=== PATIENT | male | born 1965 | race Caucasian/White ===

== ENCOUNTER 2016-07-09 09:05 | Day surgery (SDC) | payer OTHER ==
[~2016-07-09 09:05] MED LIST: RINGERS SOLUTION,LACTATED 1,000 ML IV PRN
--- OUTSIDE RECORDS SUMMARY | 2016-07-09 09:09 | XMS REPORT | Continuity of Care Document ---
:1965 Author Organization [employer] [place] [address] Care Team Providers Name Role Phone Unavailable Primary Care Provider Unavailable Source Comments This disclosure is being made pursuant to the [employer] program and maynot contain all information available regarding this patient.[employer] Active Allergies and Adverse Reactions Not on File Current Medications Be aware that medications may not be up to date as of this document. Alwaysverify current medications with the patient. Not on file Active Problems Not on file Social History Tobacco Use Types Packs/Day Years Used Date Never Assessed Plan of Care Health Maintenance Due Date Last Done Comments Retired-Pertussis Vaccine Adult 1982 Retired-Tetanus Vaccine Adult 1982 Colonoscopy 2013 Well Adult Visit 2013 Retired-INFLUENZA VACCINE 01/09/2015 Results from Last 3 Months Not on file
[2016-07-09] MEDS ORDERED: RINGERS SOLUTION,LACTATED 1,000 ML IV ONE (09:56)
--- NOTE | 2016-07-09 12:08 | OR ---
Operative Report - Dictated Report Narrative: OPERATIVE REPORT DATE OF OPERATION: 07/09/2016 PREOPERATIVE DIAGNOSIS: No prior dedicated colon studies. Constipation POSTOPERATIVE DIAGNOSIS: Very capacious colon OPERATION: Colonoscopy SURGEON: Pato Adrian MD ANESTHESIA: SVETLANA Vogt CRNA INDICATIONS FOR PROCEDURE: The patient is a 51-year-old male referred for initial colon screening by A Roly HATCH. He has a history of constipation with some improvement using MiraLAX. FINDINGS: Very capacious: Otherwise normal exam to the cecum NARRATIVE OF PROCEDURE: The patient was identified in the holding area, and prior to the administration of anesthetic, a multidisciplinary timeout was observed. With the patient in the left lateral position and after the administration of intravenous sedation, the perineum was inspected. There was no evidence of pilonidal disease or skin breakdown. The external appearance of the anus was normal. Sphincter tone was good. The flexible fiberoptic colonoscope was inserted into the rectum which was insufflated with air. The rectal mucosa and submucosal vascular pattern appeared normal, the prep was seen to be complete. The scope was advanced through the sigmoid colon, up the descending colon, and around the splenic flexure where the triangular haustral architecture of the transverse colon was seen. The scope was advanced across the transverse colon, around the hepatic flexure to the cecum, where the confluence of tenia and the ileocecal valve were identified. The mucosa at this level appeared normal. The scope was then slowly withdrawn in a circular fashion so that all aspects of colonic mucosa were inspected. The colon was very capacious in character requiring standard reduction maneuvers and gentle external manual compression on the abdomen to reach the cecum. The haustral architecture appeared well preserved throughout with no evidence of external compression. The mucosa and submucosal vascular pattern appeared normal, specifically there was no gross evidence to suggest colitis or inflammatory bowel disease and no AV malformations were seen. No diverticulosis was demonstrated. No polyps were encountered. The scope was gradually withdrawn to the level of the rectum. As much insufflated air as possible was removed. The scope was withdrawn from the patient and the procedure terminated. The patient tolerated the anesthetic and procedure well without complication and was transferred back to the ambulatory surgery area awake and in stable condition. The patient remained stable throughout a period of postoperative observation. He denied abdominal discomfort, was able to tolerate by mouth intake, and was up without assistance. I shared the operative findings with the patient and he was given copies of the photographs which appear in the medical record. He was discharged home with instructions not to engage in hazardous activity today, but may resume normal activity tomorrow, and advance diet as tolerated. He is to continue those medications as listed in the history and physical exam. RECOMMENDATION: It was recommended he use MiraLAX on a regular basis with titration to improve his bowel habit. Colon surveillance in 10 years depending upon findings and symptoms Reviewed and electronically signed
[2016-07-09 13:17] VITALS: BP 109/64
== END 2016-07-09 09:06 | disposition home or self-care (01) ==
LOC: AMB 09:05
PROVIDERS: ATTEND Surgery
PROC: 0DJD8ZZ Inspection of Lower Intestinal Tract, Via Natural or Artificial Opening Endoscopic (ICD-10-PCS; principal; 2016-07-09 11:00)
DX: Z12.11 Encounter for screening for malignant neoplasm of colon (principal); K59.00 Constipation, unspecified; J45.909 Unspecified asthma, uncomplicated; J44.9 Chronic obstructive pulmonary disease, unspecified; F17.200 Nicotine dependence, unspecified, uncomplicated; Z68.22 Body mass index [BMI] 22.0-22.9, adult

== ENCOUNTER 2016-07-16 20:16 | Emergency (ER) | payer OTHER ==
--- NOTE | 2016-07-16 20:37 | ERNOTE ---
Abdominal HPI - General Chief Complaint: Abdominal Pain Time Seen by Provider: 07/16/16 20:31 Source: patient Exam Limitations: no limitations - Immun/Allergies/Home Medications Immunizatons: IMMUNIZATION HX Immunizations Up to Date Yes History of Influenza Vaccine Yes Hx Pneumococcal Vaccination More Information Required Allergies/Adverse Reactions: Allergies No Known Allergies Allergy (Verified 07/09/16 09:34) Home Medications: HOME MEDICATIONS Albuterol Sulfate [Proventil Hfa] 2 puff IH Q4H PRN 06/20/16 [Last Taken Unknown ] Budesonide/Formoterol Fumarate [Symbicort 160-4.5 Mcg Inhaler] 2 puff IH BID 02/24 [Last Taken Unknown] Tiotropium [place] [Spiriva] 18 mcg IH DAILY 06/20/16 [Last Taken Unknown] - History of Present Illness Narrative: Pt had sudden onset of LUQ abdominal pain after twisting to the right. The pain has been waxing / waning somewhat. He called EMS to bring him to the hospital. Timing: other - waxing/ waning but no relief Quality: moderate, sharpness, stabbing Activities at Onset: activity - turning to the right Prior Abdominal Problems: Present: other - Had a "colon test" one week ago Prior Treatment: Present: recently seen Review of Systems - Review of Systems Constitutional: Absent: recent illness EYE: Present: no symptoms reported ENT: Present: no symptoms reported Respiratory: Absent: shortness of breath Cardiology: Absent: chest pain Gastrointestinal/Abdominal: Present: nausea, diarrhea. Absent: vomiting Genitourinary: Absent: frequency, pain Musculoskeletal: Present: back pain, muscle pain Skin: Present: no symptoms reported Neurological: Present: no symptoms reported Endocrine: Present: no symptoms reported Hematologic/Lymphatic: Present: no symptoms reported Psych: Present: no symptoms reported - Patient's Past Medical History Patient History - Medical: GERD Patient History - Cardiac/Respiratory: Asthma, COPD, Other Patient History - Cancer: No Hx of Cancer Patient History - Surgical Procedures: Colonoscopy, Other Patient History - Other: None - Family History Brother Family History - Medical: No pertinent hx Family History - Cardiac/Respiratory: COPD Family History - Cancer: No pertinent family hx Father Family History - Medical: History Unknown Family History - Cardiac/Respiratory: History Unknown Family History - Cancer: History Unknown - Social History Living Situations: alone Abuse History: No History of abuse Psych History: No pertinent hx Smoking Status: Current every day smoker Have you smoked in the past 12 months: Yes Do you dip or chew tobacco: No Alcohol Use: none Drug Use: none - Immunizations Immunizations Up to Date: Yes Hx Pneumococcal Vaccination: More Information Required to Determine History of Influenza Vaccine: Yes Physical Exam - Physical Exam General Appearance: Present: wd/wn, alert, no apparent distress Eye Exam: Normal inspection: bilateral Neck: Present: normal inspection Respiratory: Present: no respiratory distress, normal breath sounds, no accessory muscle use, chest nontender, lungs clear Cardiovascular/Chest: Present: regular rate, rhythm, no murmur Gastrointestinal/Abdominal: Present: normal bowel sounds, tenderness - LUQ Back Exam: Present: CVA tenderness (L) - mild Extremity Exam: Present: normal inspection, normal range of motion Neurological Exam: Present: alert, oriented, normal mood/affect, no motor/ sensory deficits Skin Exam: Present: normal color, warm/dry Lymphatic Exam: Present: no adenopathy ED Progress - Results and Orders Patient's Lab Results:: I have reviewed the patient's lab results. Results and Orders: Laboratory Tests 07/16/16 07/16/16 07/16/16 20:26 20:56 20:56 WBC 9.1 Hgb 17.3 Hct 49.7 Plt Count 198 Sodium 142 Potassium 4.8 H Chloride 101 Carbon Dioxide 30.2 Anion Gap 15.6 H BUN 17 D Creatinine 1.12 Est GFR (Non-Af Amer) 73 BUN/Creatinine Ratio 15.2 Random Glucose 116 H Calcium 9.4 Total Bilirubin 0.3 AST 17 ALT 20 Alkaline Phosphatase 83 Total Protein 8.4 H Albumin 4.4 Amylase 44 Lipase 156 Urine Color Yellow Urine Appearance Clear Urine pH 7.0 Ur Specific [place] 1.010 Urine Protein Negative Urine Glucose (UA) Negative Urine Ketones Negative Urine Blood Negative Urine Nitrate Negative Urine Bilirubin Negative Urine Urobilinogen Normal Ur Leukocyte Esterase Negative Urine RBC Trace Urine WBC None seen Ur Epithelial Cells None seen Other Crystals Trace Urine Bacteria Trace Urine Culture Comments No culture indicated - Vital Signs Patient's Vital Signs:: I have reviewed the patient's vital signs. Vital Signs: Vital Signs 07/16/16 20:17 Temperature 37.7 C H Pulse Rate 104 H Respiratory 17 Rate Blood Pressure 134/85 O2 Sat by Pulse 94 Oximetry - X-Ray X-Ray #1 X-Ray: abdomen Interpretation: Interp. by me X-ray Comments: Moderate stool retention in the lower and right side. mildly dilated colon LUQ that has been seen on previous x rays. - Progress/Reassessment Chief Complaint: Abdominal Pain Progress:: Pain free at discharge Progress Note-Subjective: 07/16/16 22:58 Pt's pain relieved since enema and subsequent BM. Repeat abdominal exam found minimal to no tenderness, normal bowel sounds. No guarding or rebound. Discussed increasing laxative as he was instructed to do by his PCP 07/16/16 23:01 Departure - Departure Clinical Impression: Constipation Qualifiers: Constipation type: slow transit constipation Qualified Code(s): K59.01 - Slow transit constipation Disposition: Home self-care Condition: Good Instructions: Constipation, Adult, [id number] Additional Instructions: Take x-lax when you get home to help continue to clean out your bowels. Follow up with your regular doctor as needed
--- OUTSIDE RECORDS SUMMARY | 2016-07-16 20:44 | XMS REPORT | Continuity of Care Document ---
:1965 Author Organization [employer] [place] [address] Care Team Providers Name Role Phone Unavailable Primary Care Provider Unavailable Source Comments This disclosure is being made pursuant to the [employer] program and maynot contain all information available regarding this patient.[employer] Active Allergies and Adverse Reactions Not on [...]
[2016-07-16 20:59] LABS: Urine Bilirubin Negative (NEGATIVE); Urine Blood Negative /ul (NEGATIVE); Urine Ketone Negative (NEGATIVE); Urine Nitrite Negative (NEGATIVE); Urine Protein Negative (NEGATIVE); Urine Urobilinogen Normal (NORMAL)
[2016-07-16 21:04] LABS: Hematocrit 49.7 % (42.0-52.0); Hemoglobin 17.3 gm/dL (13.5-18.0); Mean Cell Volume 91.9 fl (78-100); Mean Corpuscular Hgb Conc 34.8 g/dl (32-36); Mean Platelet Volume 11.6 fl (6.0-9.5); Neutrophil % 66.4 % (42-75.0); Platelet Count 198 K/mm3 (150-450); Red Blood Count 5.41 M/mm3 (4.7-6.0); Red Cell Distribution Width 13.5 % (11.5-14.0); White Blood Count 9.1 K/mm3 (4.0-10.5)
[2016-07-16 21:08] LABS: Urine Appearance Clear; Urine Color Yellow; Urine RBC TRACE /hpf (0-5); Urine WBC None Seen /hpf (0-5)
[2016-07-16 21:09] LABS: Urine Bacteria TRACE; Urine Other Crystal TRACE /hpf
[2016-07-16 21:18] LABS: Albumin * 4.4 gm/dl (3.4-5.0); Anion Gap 15.6 mmol/L (6.8-13.8); BUN/Creatinine Ratio 15.2 (9.0-21.6); Bilirubin, Total 0.3 mg/dL (0.0-1.1); Ca. Corrected For Albumin 8.8 mg/dL (8.4-10.2); Calcium * 9.4 mg/dL (7.9-10.9); Carbon Dioxide 30.2 mmol/L (24-32.6); Potassium 4.8 mmol/L (3.4-4.6); Total Protein 8.4 gm/dL (6.2-8.2)
[2016-07-16 23:05] VITALS: BP 136/78
== END 2016-07-16 23:05 | disposition home or self-care (01) ==
LOC: ER 20:16
DX: K59.01 Slow transit constipation (principal)